=== PATIENT | male | born 1965 | race Caucasian/White ===

== ENCOUNTER 2023-10-30 08:57 | Day surgery (SDC) | payer MEDICARE, MEDICAID ==
[2023-10-24 16:10] LABS: BASOPHILS % (AUTO) 0.7 % (0-1); EOSINOPHILS # (AUTO) 0.1 X10'3 (0-0.9); LYMPHOCYTES # (AUTO) 1.6 X10'3 (1.1-4.8); LYMPHOCYTES % (AUTO) 22.7 % (21-51); MEAN CORPUSCULAR HEMOGLOBIN 26.7 PG (27.0-31.0); MEAN CORPUSCULAR HGB CONC 31.6 g/dL (33.0-36.5); MEAN CORPUSCULAR VOLUME 84.3 FL (78-98); MONOCYTES # (AUTO) 0.5 X10'3 (0-0.9); MONOCYTES % (AUTO) 7.5 % (2-12); NEUTROPHILS # (AUTO) 4.7 X10'3 (1.8-7.7); NEUTROPHILS % (AUTO) 67.1 % (42-75); PRE OP HEMATOCRIT 36.5 % (42.0-52.0); PRE OP HEMOGLOBIN 11.5 g/dL (14.0-17.9); PRE OP PLATELET COUNT 276 X10'3 (140-440); RED BLOOD COUNT 4.33 X10'6 (4.70-6.10)
[2023-10-24 16:23] LABS: PRE OP PROTIME 10.3 SECONDS (9.0-12.0)
[2023-10-24 16:25] LABS: ALBUMIN 3.3 G/DL (3.4-5.0); ALBUMIN/GLOBULIN RATIO 0.8 (1.1-1.5); ALKALINE PHOSPHATASE 82 IU/L (46-116); BLOOD UREA NITROGEN 14 MG/DL (7-18); BUN/CREATININE RATIO 13.9 (10.0-20.0); CALCIUM 8.6 MG/DL (8.5-10.1); CHLORIDE 105 MMOL/L (99-107); CREATININE 1.01 MG/DL (0.60-1.10); PRE OP ALT 33 U/L (30-65); PRE OP ANION GAP 7 (8-16); PRE OP AST 24 U/L (10-37); PRE OP BILIRUB, TOTAL 0.3 MG/DL (0.0-1.0); PRE OP GLUCOSE 105 MG/DL (70-104); PRE OP POTASSIUM 4.3 MMOL/L (3.4-5.1); PRE OP SODIUM 140 MMOL/L (135-145); TOTAL CARBON DIOXIDE 27.9 MMOL/L (24-32); TOTAL PROTEIN 7.3 G/DL (6.4-8.2); eGFR 76 ML/MIN
[~2023-10-30] VITALS: Ht 180.3 cm; Wt 171.6 kg
[2023-10-30] VITALS (14 sets, daily range): BP systolic 132–182; BP diastolic 74–103; PULSE 64–77; RESP 13–19; TEMP 97.7; O2SAT 96–100
[~2023-10-30 08:57] MED LIST: BUPR1PAT3 TOP; FLUO40CA PO; NITR0.4T51; OLAN5TAB75 PO; OXYC1TAB17 PO
[2023-10-30] MEDS ORDERED: epiNEPHrine 1 mg/ml 30ml MDV ONE ×2 (10:24→12:52)
[2023-10-30] MEDS ORDERED: oxymetazoline 15 ML nasal spray NS ONE (10:25)
[2023-10-30] MEDS ORDERED: mupirocin 2% ointment 22GM ONE (10:25)
[2023-10-30] MEDS: tranexamic acid inj. 1,000 MG in normal saline IV soln 100ML IV ONE (10:38)
[2023-10-30] MEDS: famotidine 20mg tablet PO ONE (10:38)
[2023-10-30] MEDS: ringers solution, lacted 1,000 ML IV SCH (10:39)
[2023-10-30] MEDS: oxymetazoline 15 ML nasal spray NS ONE (11:44)
[2023-10-30] MEDS ORDERED: meperidine/PF 25mg/ml syringe IV PRN (12:00)
[2023-10-30] MEDS ORDERED: morphine 4 MG/ML inj SYRINge IV PRN (12:00)
[2023-10-30] MEDS ORDERED: labetalol 20mg/4ml (5mg/ml) syringe IV PRN (12:00)
[2023-10-30] MEDS ORDERED: ringers solution, lacted 1,000 ML IV SCH (12:00)
[2023-10-30] MEDS ORDERED: ondansetron/PF 4mg/2ml inj IV PRN (12:00)
[2023-10-30] MEDS ORDERED: morphine 2 MG/ML inj. syringe IV PRN (12:00)
[2023-10-30] MEDS ORDERED: HYDROmorphone/PF 0.2 MG/ML SYRINGE IV PRN (12:00)
[2023-10-30] MEDS ORDERED: proCHLORperazine 10 MG/2 ml inj IV PRN (12:00)
[2023-10-30] MEDS ORDERED: sevoflurane 250ml liquid IH ONE (12:06)
[2023-10-30] MEDS ORDERED: midazolam 1 mg/ML 2ml injection ONE (12:16)
[2023-10-30] MEDS ORDERED: fentaNYL/PF 50MCG/1 ML 2ML syringe ONE (12:17)
[2023-10-30] MEDS ORDERED: dexamethasone sod phosphate 4mg/ml inj. ONE (12:29)
[2023-10-30] MEDS ORDERED: ceFAZolin 1000mg inj ONE ×3 (12:29)
[2023-10-30] MEDS ORDERED: cocaine 4% topical solution 4ml bottle ONE (12:29)
[2023-10-30] MEDS ORDERED: ondansetron/PF 4mg/2ml inj ONE (12:29)
[2023-10-30] MEDS ORDERED: propofol inj 20 ML IV ONE (12:29)
[2023-10-30] MEDS ORDERED: LIDOcaine 2% (20mg/ml) 5ml vial ONE (12:29)
[2023-10-30] MEDS ORDERED: Thrombin (Bovine) 5,000 unit vial TP ONE (12:52)
[2023-10-30] MEDS ORDERED: labetalol 20mg/4ml (5mg/ml) syringe IV ONE (12:58)
[2023-10-30] MEDS: hydrALAZINE 20mg/ml inj. IV PRN (13:41)
[2023-10-30] MEDS: acetaminophen 1,000mg/100ml IV 100 ML IV ONE (13:50)
[2023-10-30] MEDS: HYDROmorphone/PF 0.2 MG/ML SYRINGE IV PRN (13:54)
[2023-10-30] MEDS: mupirocin 2% ointment 22GM TP ONE (14:28)
[2023-10-30] MEDS: salt irrigation nasal spray 45 ML SPRAY NS PRN (15:03)
[2023-10-30] MEDS ORDERED: oxymetazoline 15 ML nasal spray NS SCH (20:00)
[2023-10-30] MEDS ORDERED: mupirocin 2% nasal ointment 1gm UD NS SCH (20:00)
== END 2023-10-30 15:58 | disposition home or self-care (01) ==
LOC: PAS 08:57 → EDBD 11:30 → PAS 15:58
PROVIDERS: ATTEND Otolaryngology
DX: J34.2 Deviated nasal septum (principal); J34.3 Hypertrophy of nasal turbinates; E66.9 Obesity, unspecified; F41.9 Anxiety disorder, unspecified; Z79.899 Other long term (current) drug therapy; Z90.49 Acquired absence of other specified parts of digestive tract; Z90.89 Acquired absence of other organs; Z98.84 Bariatric surgery status; Z98.890 Other specified postprocedural states; Z68.43 Body mass index [BMI] 50.0-59.9, adult
CPT/HCPCS: 30140; 30520; 36415; 80053; 82948; 85025; 85610; 85730; 93005; A4618; A6402; A7000; J0131; J0171; J0360; J0690; J1100; J1170; J2001; J2250; J2405; J2704; J3010; J3490; J7030; J7120; Z7506; Z7508; Z7512; Z7610; 88300; A6449